=== PATIENT | female | born 1995 | race Caucasian/White ===

== ENCOUNTER 2020-05-28 07:37 | Emergency (ER) | payer OTHER, MEDICAID ==
[~2020-05-28] VITALS: Ht 165.1 cm; Wt 73.0 kg
[2020-05-28 07:43] VITALS: BP 138/88
[2020-05-28] MEDS ORDERED: ONDANSETRON 4MG ODT PO STA (07:49)
[2020-05-28] MEDS ORDERED: VISCOUS LIDOCAINE 2% 15 ML UDC PO STA (07:49)
[2020-05-28] MEDS ORDERED: MAGNESIUM/ALUMINUM HYDROXIDE/SIMETHICONE 30ML UDC PO STA (07:49)
[2020-05-28 09:10] LABS: BASOPHILS % 0.1 % (0.0-2.0); HEMATOCRIT. 35.8 % (36.0-48.0); HEMOGLOBIN. 11.7 g/dL (12.0-16.0); LYMPHOCYTES % 9.3 % (20.0-50.0); MEAN CORPUSCULAR HEMOGLOBIN 32.6 pg (28.0-32.0); MEAN CORPUSCULAR VOLUME 99.7 fL (81.0-99.0); MEAN PLATELET VOLUME 7.9 fl (7.4-10.4); MONOCYTES % 3.8 % (2.0-8.0); NEUTROPHILS % 86.8 % (40.0-76.0); PLATELET 125 x1000/uL (130-400); RED BLOOD CELL COUNT 3.59 mill/uL (4.2-5.4); RED CELL DISTRIBUTION WIDTH 13.8 % (11.6-14.6)
[2020-05-28 09:16] LABS: CHLORIDE 100 mEq/L (98-107)
[2020-05-28 09:34] LABS: HCG SCREEN NEGATIVE
[2020-05-28] MEDS ORDERED: INSULIN REGULAR (HUMULIN R) 300UNITS/3ML VIAL IV NR (09:45)
[2020-05-28] MEDS ORDERED: SODIUM CHLORIDE 0.9% 1,000 ML IV NR (09:45)
== END 2020-05-28 10:52 | disposition left against medical advice (07) ==
LOC: ER 08:13
DX: R10.13 Epigastric pain (principal); E11.9 Type 2 diabetes mellitus without complications; E87.8 Other disorders of electrolyte and fluid balance, not elsewhere classified; D53.9 Nutritional anemia, unspecified
CPT/HCPCS: 36415; 80053; 82010; 84703; 85025; 93005; 99284

== ENCOUNTER 2021-09-16 07:32 | Emergency (ER) | payer OTHER, MEDICAID ==
[~2021-09-16] VITALS: Ht 167.6 cm; Wt 73.0 kg
[2021-09-16] MEDS ORDERED: KETOROLAC 30MG/ML VIAL IV STA (07:39)
[2021-09-16] MEDS ORDERED: SODIUM CHLORIDE 0.9% 1,000 ML IV ONE (07:45)
[2021-09-16 08:46] LABS: CHLORIDE 109 mEq/L (98-107)
[2021-09-16 08:47] LABS: HCG SCREEN NEGATIVE
[2021-09-16 08:51] LABS: C REACTIVE PROTEIN QUANT 4.8 mg/L (0.0-3.0)
[2021-09-16 08:57] LABS: B-HCG QUANTITATIVE < 1 mIU/mL (<3)
[2021-09-16 09:37] LABS: CLARITY URINE CLEAR (CLEAR); COLOR URINE YELLOW (YELLOW); KETONES URINE TRACE (NEGATIVE); LEUKOCYTE ESTERASE URINE 1+ (NEGATIVE); NITRITE URINE NEGATIVE (NEGATIVE); OCCULT BLOOD URINE 1+ (NEGATIVE); PROTEIN URINE TRACE (NEGATIVE); SPECIFIC GRAVITY URINE 1.041 (1.005-1.030)
[2021-09-16 10:05] LABS: BASOPHILS % 0.2 % (0.0-2.0); EOSINOPHILS % 1.1 % (0.0-5.0); HEMATOCRIT. 35.6 % (36.0-48.0); HEMOGLOBIN. 11.6 g/dL (12.0-16.0); LYMPHOCYTES % 33.7 % (20.0-50.0); MEAN CORPUSCULAR HEMOGLOBIN 25.9 pg (28.0-32.0); MEAN CORPUSCULAR VOLUME 79.3 fL (81.0-99.0); MEAN PLATELET VOLUME 7.4 fl (7.4-10.4); MONOCYTES % 7.7 % (2.0-8.0); NEUTROPHILS % 57.3 % (40.0-76.0); PLATELET 226 x1000/uL (130-400); RED BLOOD CELL COUNT 4.48 mill/uL (4.2-5.4); RED CELL DISTRIBUTION WIDTH 15.4 % (11.6-14.6)
[2021-09-16 12:18] VITALS: BP 116/59
== END 2021-09-16 12:19 | disposition home or self-care (01) ==
LOC: ER 07:32
DX: M54.50 Low back pain, unspecified (principal)
CPT/HCPCS: 36415; 76770; 80053; 81003; 81025; 84702; 84703; 85025; 85651; 86140; 96361; 96374; 99284; J1885; J7030; Z7610

== ENCOUNTER 2023-01-20 07:34 | Emergency (ER) | payer OTHER, MEDICAID ==
[~2023-01-20] VITALS: Ht 167.6 cm; Wt 81.0 kg
[2023-01-20 07:36] VITALS: BP 140/107; PULSE 114; RESP 20; TEMP 99.8; O2SAT 100
[2023-01-20] MEDS ORDERED: ACETAMINOPHEN 650MG/20.3ML UDC PO ONE (08:15)
[2023-01-20] MEDS ORDERED: DEXAMETHASONE 10 MG/ML VIAL IV ONE (08:15)
[2023-01-20 09:24] LABS: CLARITY URINE CLEAR (CLEAR); COLOR URINE YELLOW (YELLOW); GLUCOSE URINE NEGATIVE (NEGATIVE); KETONES URINE NEGATIVE (NEGATIVE); LEUKOCYTE ESTERASE URINE NEGATIVE (NEGATIVE); NITRITE URINE NEGATIVE (NEGATIVE); OCCULT BLOOD URINE TRACE (NEGATIVE); PROTEIN URINE NEGATIVE (NEGATIVE); SPECIFIC GRAVITY URINE 1.018 (1.005-1.030); UROBILINOGEN URINE 0.2 E.U./dL (0.2-1.0)
[2023-01-20 09:45] LABS: BACTERIA URINE FEW; RBC URINE 0-2 /hpf (0-2); SQUAMOUS EPITHELIAL CELL URINE FEW /lpf (RARE/1+)
[2023-01-20 09:46] LABS: YEAST URINE NONE SEEN
== END 2023-01-20 11:58 | disposition home or self-care (01) ==
LOC: ER 08:20
DX: J02.9 Acute pharyngitis, unspecified (principal); L53.9 Erythematous condition, unspecified; R06.02 Shortness of breath
CPT/HCPCS: 99283; 96374; 81003; 81025; 87430; 87070; J1100